=== PATIENT | male | born 1955 | race African-American/Black ===

== ENCOUNTER 2024-12-22 12:46 | Emergency (ER) | payer MEDICARE, SELFPAY ==
[2024-12-22] VITALS (20 sets, daily range): BP systolic 114–134; BP diastolic 67–81; PULSE 65–82; RESP 15–22; TEMP 36.2; O2SAT 91–100
--- NOTE | ~2024-12-22 | XR_ITS ---
EXAMINATION: XR chest 2V 12/22/2024 13:27 INDICATION: Dizziness TECHNIQUE:Frontal and lateral images of the chest were obtained. COMPARISON: None available FINDINGS: Cardiomediastinal silhouette is moderately enlarged. No pneumothorax. No free air under the diaphragm. Moderate-sized patchy opacities in the mid and lower lungs. IMPRESSION: 1: Moderate-sized patchy opacities in the mid and lower lungs. Differential includes but is not limited to edema or pneumonia. Recommend follow-up to resolution. Consider a chest CT for further assessment. Reviewed, dictated and finalized at location Q. IMPRESSION: 1: Moderate-sized patchy opacities in the mid and lower lungs. Differential in cludes but is not limited to edema or pneumonia. Recommend follow-up to resolut ion. Consider a chest CT for further assessment.
--- NOTE | ~2024-12-22 | CT_ITS ---
Exam: CT chest without contrast Clinical History: [Bilateral infiltrates/edema ] Comparison: [ Chest x-ray 12/22/2024] Technique: Multiple axial CT images of the chest without with IV contrast. Sagittal and coronal reformatted images were obtained. FINDINGS: Lungs and pleura: [ Tracheobronchial tree is patent. No pleural effusion. No pneumothorax. Mild paraseptal emphysema in the upper lobes. Mild biapical scarring.] Small to moderate-sized patchy and reticular opacities in the mid and lower lungs. Small reticular opacities in the upper lobes. Mediastinum and pulmonary haresh: [ No mass or adenopathy.] Axillary/intramammary and supraclavicular: There are a few nonenlarged, nonspecific borderline enlarged mediastinal and hilar lymph nodes. Heart and great vessels: Heart is mildly enlarged..[ [ No pericardial effusion.] [ No aneurysm.] Chest Wall: [ Unremarkable.] Upper Abdomen: There is a too small to characterize low-attenuation lesion in the right lobe of the liver. Osseous structures: [ No acute fracture or destructive lesion.] [ Multilevel degenerative change in the visualized spine.] Additional findings: Mild concentric thickening of the esophagus. IMPRESSION: 1. Small to moderate-sized patchy and reticular opacities in the mid and lower lungs. Differential includes but is not limited to edema and/or pneumonia. 2. Mild emphysema in the upper lobes. 3. There are a few nonenlarged, nonspecific borderline enlarged mediastinal and hilar lymph nodes. A follow-up chest CT in 3 months is recommended. 4. Mild concentric thickening of the jiménez of the esophagus. Differential includes but is not limited to incomplete esophageal wall distention versus esophagitis. Reviewed, dictated and finalized at location Q. IMPRESSION: 1. Small to moderate-sized patchy and reticular opacities in the mid and lower lungs. Differential includes but is not limited to edema and/or pneumonia. 2. Mild emphysema in the upper lobes. 3. There are a few nonenlarged, nonspecific borderline enlarged mediastinal and hilar lymph nodes. A follow-up chest CT in 3 months is recommended. 4. Mild concentric thickening of the jiménez of the esophagus. Differential inclu rick but is not limited to incomplete esophageal wall distention versus esophagi tis.
--- NOTE | 2024-12-22 12:55 | ECG_ITS ---
Test Date: 2024-12-22 12:58:03 Measurements Intervals [place] Rate: 73 P: 24 [place]: 196 QRS: -17 QRSD: 109 T: 153 QT: 401 QTc: 442 Interpretive Statements SINUS RHYTHM LEFT VENTRICULAR HYPERTROPHY AND ST-T CHANGE BORDERLINE T WAVE ABNORMALITY- ANTEROLATERAL LEADS BASELINE ARTIFACT- V2, V4 BORDERLINE ECG No previous ECG available for comparison Electronically Signed On 12-22-2024 13:15:14 CDT by Crow Ruggiero D.O.
[2024-12-22 13:12] LABS: Hematocrit 42.1 % (42.0-52.0); Hemoglobin 13.6 g/dL (14.0-18.0); Immature Granulocyte Percent A 0.2 % (0-0.5); Lymphocytes Absolute Auto 2.11 K/mm3 (0.9-3.2); Mean Corpuscular HGB Conc 32.3 g/dl (32-36); Mean Corpuscular Hemoglobin 27.6 pg (26-34); Mean Corpuscular Volume 85.4 fl (80-100); Nucleated Red Blood Cells Absolute Auto 0.000 K/mm3 (0.0-0.012); Nucleated Red Blood Cells Perc 0.0 % (0.0-0.2); Platelet Count Result 231 k/mm3 (150-375); Red Blood Count 4.93 M/mm3 (4.6-6.20); White Blood Count 5.3 K/mm3 (4.5-10.0)
[2024-12-22] MEDS: LACTATED RINGERS 1,000 ML 999 ML IV CONT (13:14)
[2024-12-22] MEDS: ONDANSETRON INJ 4 MG/2 ML VIAL IV PUSH (13:14)
[2024-12-22 13:27] LABS: Alanine Aminotransferase 22 U/L (6-50); Albumin Level 4.2 g/dL (3.5-5.1); Alkaline Phosphatase 101 U/L (38-126); Anion Gap 10 mmol/L (4-12); Aspartate Amino Transferase 35 U/L (17-59); Bilirubin,Total 0.5 mg/dL (0.2-1.3); Blood Urea Nitrogen 15 mg/dL (9-20); Calcium 8.9 mg/dL (8.4-10.2); Carbon Dioxide 26 mmol/L (22-30); Chloride 104 mmol/L (98-107); Estimated CRCL calculation 84 ml/min; Estimated Glomerular Filt Rate > 60; Glucose 125 mg/dL (65-110); Potassium 3.8 mmol/L (3.4-5.0); Sodium 140 mmol/L (137-145); Total Protein 8.5 g/dL (6.3-8.2)
[2024-12-22 13:43] LABS: Troponin I < 0.012 ng/mL (0.000-0.034)
--- NOTE | 2024-12-22 15:11 | ED.GENADULT ---
HPI - General Adult General Chief complaint: Nausea/Vomiting/Diarrhea Stated complaint: nausea/vomiting History of Present Illness HPI narrative: This is a 69-year-old male presenting with nausea vomiting. 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 He had some gas station pizza and then immediately vomited. He became diaphoretic during this time. He now feels weak. He is denying fevers chest pain difficulty breathing abdominal pain or lower extremity edema. Patient denies any significant medical history. Patient exhibits some bad pizza. Related Data Allergies Allergy/AdvReac Type Severity Reaction Status Date / Time No Known Allergies Allergy Verified 12/22/24 12:56 Exam Narrative: APPEARANCE: No apparent distress. Well-appearing stable vitals Head: atraumatic. EYES: EOMI, NOSE: Atraumatic NECK: Trachea midline RESPIRATORY: No increased rate of breathing clear auscultation CARDIOVASCULAR: RRR, no peripheral edema ABDOMINAL: Non-distended soft nontender MUSCULOSKELETAl: No obvious deformities NEURO: Alert. Moving 4/4 extremities SKIN:: Warm, dry. Normal color PSYCHIATRIC: Normal affect Course Vital Signs Vital signs: Vital Signs Temperature 97.2 F L 12/22/24 12:51 Pulse Rate 76 12/22/24 12:51 Respiratory Rate 16 12/22/24 12:51 Pulse Oximetry 95 12/22/24 12:51 Temperature 97.2 F L 12/22/24 12:51 Pulse Rate 74 12/22/24 18:08 Respiratory Rate 17 12/22/24 18:08 Blood Pressure 125/67 12/22/24 18:08 Pulse Oximetry 94 12/22/24 18:08 Medical Decision Making [facility] Narrative Medical decision making narrative: -Course: 69-year-old male presenting with an episode of nausea and vomiting after eating gas station pizza. Patient given fluids and antiemetics with improvement. Chest x-ray was obtained which showed infiltrates versus edema. CT chest showed [id number] patchy infiltrates in the lower lobes. Patient was re-evaluated. He is resting comfortably in bed. He does not have any chest pain or shortness of breath. He does not have any infectious symptoms such as fevers chills body aches. He states that he did have pneumonia several years ago but he feels well overall now. He does not have any leukocytosis. He has not been febrile here his vital signs are stable. CHF was also considered but he does not have any edema of his lower extremities. No orthopnea. No history of CHF. No oxygen requirements. We discussed admission versus discharge the patient does not want to be admitted. He is comfortable getting back in his truck and following up with his physician back in [place]. Patient will be given a course of oral antibiotics for community-acquired pneumonia. Given return precautions for fevers chest pain difficulty breathing or worsening condition. -DDX includes but is not limited to: Food poisoning, gastroenteritis, ACS, pneumonia, viral syndrome -Social determinants of health: Patient is from [place]. 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 Denies drugs or alcohol -Independent interpretation of studies: Independent EKG interpretation: Rhythm [sinus], Rate [73], [place] -[normal], [place] -[normal], QRS [narrow], QTC [normal], T waves -[negative for concerning inversions], ST Segments - [2 3 AVF] Final interpretations: [Normal sinus rhythm with ST depressions in 2 3 AVF. He also has nonspecific T-wave abnormalities in multiple leads. However patient does not have any chest pain and troponins are negative x2. White count 5.3. Hemoglobin 13.6. Metabolic panel within normal limits. -Interventions: 1 L LR, Zofran Vital Signs Vital Signs: Vital Signs Temperature 97.2 F L 12/22/24 12:51 Pulse Rate 76 12/22/24 12:51 Respiratory Rate 16 12/22/24 12:51 Pulse Oximetry 95 12/22/24 12:51 Temperature 97.2 F L 12/22/24 12:51 Pulse Rate 74 12/22/24 18:08 Respiratory Rate 17 12/22/24 18:08 Blood Pressure 125/67 12/22/24 18:08 Pulse Oximetry 94 12/22/24 18:08 Lab Data 12/22/24 13:06 12/22/24 13:06 Labs: Lab Results 12/22/24 12/22/24 12/22/24 Range/Units 13:06 13:06 16:11 WBC 5.3 (4.5-10.0) K/mm3 RBC 4.93 (4.6-6.20) M/mm3 Hgb 13.6 L (14.0-18.0) g/dL Hct 42.1 (42.0-52.0) % MCV 85.4 (80-100) fl MCH 27.6 (26-34) pg MCHC 32.3 (32-36) g/dl RDW 13.4 (11.5-14.5) % Plt Count 231 (150-375) k/mm3 MPV 10.5 H (7.4-10.4) fl Immature Gran % (Auto) 0.2 (0-0.5) % Neut % (Auto) 50.2 (45.5-73.1) % Lymph % (Auto) 39.6 (18.3-44.2) % Moore % (Auto) 6.8 (2.6-8.5) % Eos % (Auto) 2.8 (0-4.4) % Baso % (Auto) 0.4 (0.2-1.2) % Lymph # (Auto) 2.11 (0.9-3.2) K/mm3 Moore # (Auto) 0.4 (0.1-0.6) K/mm3 Eos # (Auto) 0.2 (0-0.3) K/mm3 Baso # (Auto) 0.0 (0.0-0.1) K/mm3 Abs Immat Gran (auto) 0.01 (0.00-0.031) K/mm3 Absolute Neuts (auto) 2.7 (1.3-6.7) K/mm3 Absolute Nucleated RBC 0.000 (0.0-0.012) K/mm3 Nucleated RBC % 0.0 (0.0-0.2) % Sodium 140 (137-145) mmol/L Potassium 3.8 (3.4-5.0) mmol/L Chloride 104 (98-107) mmol/L Carbon Dioxide 26 (22-30) mmol/L Anion Gap 10 (4-12) mmol/L BUN 15 (9-20) mg/dL Creatinine 0.79 (0.7-1.3) mg/dL Estim Creat Clear Calc 84 ml/min Estimated GFR > 60 (59 - ) Glucose 125 H (65-110) mg/dL Calcium 8.9 (8.4-10.2) mg/dL Total Bilirubin 0.5 (0.2-1.3) mg/dL AST 35 (17-59) U/L ALT 22 (6-50) U/L Alkaline Phosphatase 101 (38-126) U/L Troponin I Cancelled < 0.012 < 0.012 Total Protein 8.5 H (6.3-8.2) g/dL Albumin 4.2 (3.5-5.1) g/dL Discharge Plan Discharge Clinical Impression: Vomiting, Abnormal CXR Patient Disposition: Home Condition: Stable Instructions: Antibiotic Form, Acute Nausea and Vomiting (DC) Additional Instructions: You were seen emergency department after an episode of vomiting. You improved with fluids and antiemetics. Your chest x-ray here showed infiltrates that could be due to pneumonia. Please complete a course of antibiotics. If you develop fevers, chest pain, shortness of breath, weakness or you to return to the closest emergency room for re-evaluation. Please complete a course of Augmentin and doxycycline. Use zofran for nausea. It is important that you follow-up with your primary care physician for for re-evaluation when you return to [place]. Patient Language: Estonian Prescriptions: New amoxicillin-pot clavulanate 875-125 mg tablet 1 tablet PO Q12H Qty: 14 0RF doxycycline hyclate 100 mg capsule 100 mg PO DAILY Qty: 14 0RF ondansetron 4 mg tablet,disintegrating 4 mg PO Q8H PRN (Reason: nausea and vomiting) Qty: 30 0RF Follow-up/Referrals: PHYSICIAN,[facility]ER [Primary Care Provider, Internal Medicine]
[2024-12-22 17:39] LABS: Troponin I < 0.012 ng/mL (0.000-0.034)
== END 2024-12-22 19:13 | disposition home or self-care (01) ==
PROVIDERS: Emergency Provider Emergency Medicine
DX: R11.2 Nausea with vomiting, unspecified (principal); R91.8 Other nonspecific abnormal finding of lung field; Z87.01 Personal history of pneumonia (recurrent); R94.31 Abnormal electrocardiogram [ECG] [EKG]; I51.7 Cardiomegaly; J43.9 Emphysema, unspecified; R93.3 Abnormal findings on diagnostic imaging of other parts of digestive tract
CPT/HCPCS: 36415; 71046; 71250; 80053; 84484; 85025; 93005; 96361; 96374; 99284; J2405; J7120